=== PATIENT | female | born 1975 | race Caucasian/White ===

== ENCOUNTER 2016-07-15 06:41 | Observation (INO) | payer OTHER ==
--- NOTE | ~2016-07-15 | DS ---
Discharge Summary [facility] [address] [place]. [address] NAME: RONI PADGETT : 71 STATUS : DIS Walt PAT#: [id number] AGE: 41 ADM/REG DATE : 07/15/16 MR#: [id number] REPORT SERV DATE: 07/17/16 DICTATED BY: DARCIE CROCKETT DATE: 07/16/16 REPORT STATUS : Draft TRANSCRIBED BY: MODL DATE: 07/16/16 ADMISSION DATE: 07/15/2016 DISCHARGE DATE: 07/16/2016 DISCHARGE DIAGNOSES: 1. Acute hypoxic respiratory failure, improved. Does not require home oxygen. 2. Hypertension. Was not treated. The patient will be put on Norvasc 5 mg once a day. 3. Reactive airway disease, improved. 4. Tobacco abuse. 5. Obesity. HISTORY OF PRESENT ILLNESS: This is a 41-year-old female patient, came to the hospital with hypoxia and shortness of breath after she was exposed to some sort of chemicals. Please see dictated H and P. HOSPITAL COURSE: She was admitted to hospital with reactive airway disease and hypoxia. She was treated with a systemic steroid and bronchodilator, and also was found to be hypervolemic, so was treated with diuretics, improved within 24 hours significantly. She is not requiring any more oxygen. She was initially treated with a nonrebreather at the emergency room. She did have good urine output. Oxygen saturation is 98% on room air. Had a long discussion regarding the chemical use in hypertension treatment and also smoking cessation. She voiced understanding. She will be discharged with Norvasc 5 mg once a day, furosemide 40 mg, potassium 20 mEq for five days only, Flonase spray, and continue to use her albuterol and prednisone tapering dose. She requested Percocet for the pain control, so 10 pills of Percocet 10 will be given on discharge. DISPOSITION: The patient is discharged to home in stable condition. Need to follow up with primary care physician. EKL/MODL Darcie Crockett M.D. / [id number] CC: Darcie Crockett M.D.
--- NOTE | ~2016-07-15 | HP ---
History And Physical [facility] [id number] [place]. [address] NAME: RONI PADGETT : 71 STATUS : ADM Walt PAT#: [id number] AGE: 41 ADM/REG DATE : 07/15/16 MR#: [id number] REPORT SERV DATE: 07/15/16 DICTATED BY: MISTI CROCKETT DATE: 07/15/16 REPORT STATUS : Draft TRANSCRIBED BY: MODL DATE: 07/15/16 DATE OF ADMISSION: 07/15/2016 CHIEF COMPLAINT: Short of breath after using the bleach this morning. HISTORY OF PRESENT ILLNESS: This is a 41-year-old female patient who does not take any medications on a daily basis, although she has history of hypertension, who came to the hospital with difficulty breathing after using some sort of bleach. After the evaluation in the emergency room, she was found to be hypoxic and treated with high-dose steroid and put on the extra oxygen and then she was stabilized and advised on inpatient care. She denies any fever or chills, any other changes on her health status until this happening. Interestingly, the patient has a history of hypertension, was taking medication in the past, but did not take anything recently. She does not know what kind of bleach she mixed but she used bleaches for cleaning purpose. She also had some beers last night. REVIEW OF SYSTEMS: 14 systems reviewed and negative. The patient does not have any constipation or diarrhea. Not much headache. No visual changes. No smell changes. No nausea or vomiting. PAST MEDICAL HISTORY: 1. Hypertension. 2. Not medically diagnosed anxiety. PAST SURGICAL HISTORY: 1. Had a recent hysterectomy in May. 2. Carpal tunnel repair. 3. Tubal ligation. SOCIAL HISTORY: She is a current smoker, one pack a day since age 12. She drinks occasionally, more likely a few beers every weekends. She works in [employer] business, and she does have some [employer] contact. She lives with her . MEDICATION: None. ALLERGIES: TORADOL. FAMILY HISTORY: She has no premature coronary artery disease or lung disease. PHYSICAL EXAMINATION: VITAL SIGNS: Blood pressure is 134/79, pulse is 78, temperature is 97.4, respiratory rate 26, saturation is 99% on 35 high non-rebreather currently. GENERAL APPEARANCE: She is alert, awake, following commands, and no disorientation. History And Physical [address] [place]. [address] NAME: RONI PADGETT : 71 STATUS : ADM Walt PAT#: [id number] AGE: 41 ADM/REG DATE : 07/15/16 MR#: [id number] REPORT SERV DATE: 07/15/16 DICTATED BY: MISTI CROCKETT DATE: 07/15/16 REPORT STATUS : Draft TRANSCRIBED BY: MODL DATE: 07/15/16 HEENT: Pupils are equal, round, and reactive to light. EOM intact. NECK: Short neck. CHEST: Has severe crackles and coarse breathing up until mid chest in both sides and also has expiratory wheezing, scaled. CARDIOVASCULAR: No murmur, rub, or gallop. Has a regular rhythm and rate. ABDOMEN: Bowel sounds present and soft. No organomegaly appreciated. EXTREMITIES: Has some swelling and also has some erythema on both ankle area. LABORATORY DATA: Showed sodium 143, potassium 3.6, chloride 111, BUN is 18, creatinine 1.10. WBC 6.8, hemoglobin 12.8, hematocrit 38.3, platelets 269. Electrocardiogram showed a voltage criteria for LVH with sinus rhythm and prolonged QT. Chest x-ray showed, to my interpretation, vascular congestion. ASSESSMENT AND PLAN: 1. Hypoxic respiratory failure. Combination of reactive airway disease plus possible volume overload. 2. Hypertension. May need medical attention for the treatment. 3. Obesity. 4. Tobacco abuse. We are going to put on aggressive bronchodilator treatment and also IV diuretics and systemic steroid use, and we are going to obtain the echocardiogram and also we are going to reassess her blood pressure, treatment plan and also nicotine replacement therapy. I had a conversation about this current medical diagnosis and tobacco cessation. EKL/MODL Misti Crockett M.D. / [id number] CC: Misti Crockett M.D.
[2016-07-15 04:50] LABS: ALLENS TEST Pos; BE (BASE EXCESS) -4.7 MEQ/L (0 +/- 2.5); CARBOXYHEMOGLOBIN 1.9 % (0-3); DEVICE NRB; HEMOBLOGIN CONTENT 13.6 G/DL (12-16); INSTRUMENT SERIAL # 8087; METHEMOGLOBIN 0.2 % (0-3); OPERATOR ID 33449; PCO2 (CO2 TENSION) 47 MMHG (35-45); PO2 (O2 TENSION) 187 MMHG (79-93); SAMPLE Arterial; pH 7.29 (7.37-7.43)
[2016-07-15 05:12] LABS: BASOPHILS 0.1 %; BASOPHILS ABSOLUTE 0.01 10/3/uL (0.0-0.16); EOSINOPHILS 3.1 %; EOSINOPHILS ABSOLUTE 0.21 10/3/uL (0.0-0.53); HEMATOCRIT 38.3 % (36.0-48.0); HEMOGLOBIN 12.8 g/dL (12.0-16.0); IMMATURE GRANULOCYTES 0.1 %; IMMATURE GRANULOCYTES ABSOLUTE 0.01 10/3/uL (0.0-0.11); LYMPHOCYTES 32.7 %; LYMPHOCYTES ABSOLUTE 2.21 10/3/uL (0.67-4.30); MEAN CORPUS HGB CONC 33.4 g/dL (32.0-36.0); MEAN CORPUSCULAR HEMOGLOB 27.5 pg (26.0-34.0); MEAN CORPUSCULAR VOLUME 82.2 fL (80-100); MEAN PLATELET VOLUME 9.2 fL (9.2-13.0); MONOCYTES 6.7 %; MONOCYTES ABSOLUTE 0.45 10/3/uL (0.21-1.20); NEUTROPHILS 57.3 %; NEUTROPHILS ABSOLUTE 3.87 10/3/uL (2.02-8.40); PLATELET COUNT 269 10/3/uL (150-400); RBC DISTRIBUTION WIDTH 13.6 % (12.0-16.0); RED CELL COUNT 4.66 10/6/uL (4.0-5.6); WHITE BLOOD CELLS 6.8 10/3/uL (4.5-10.5)
[2016-07-15 05:18] LABS: MANUAL DIFF NO %
[2016-07-15 05:30] LABS: A/G RATIO 0.9 (0.7-1.9); ALBUMIN 3.7 G/DL (3.5-5.0); ALKALINE PHOSPHATASE 66 U/L (45-117); BUN (BLOOD UREA NITROGEN) 18 MG/DL (6-23); CALCIUM, SERUM 9.2 MG/DL (8.5-10.4); CHLORIDE, SERUM 111 MMOL/L (96-112); CO2 (CARBON DIOXIDE) 25 MMOL/L (24-34); GFR AFRICAN AMERICAN 71 ML/MIN (>=60); GFR NON AFRICAN AMERICAN 61 ML/MIN (>=60); GLOBULIN 4.1 G/DL (2.5-4.1); GLUCOSE, SERUM 124 MG/DL (60-99); POTASSIUM, SERUM 3.6 MMOL/L (3.5-5.3); SGOT(AST) 13 U/L (5-40); SGPT(ALT) 19 U/L (5-65); SODIUM, SERUM 143 MMOL/L (135-148); TOTAL BILIRUBIN 0.3 MG/DL (0-1.2); TOTAL PROTEIN 7.8 G/DL (6.0-8.5)
[2016-07-15 11:03] LABS: BENZODIAZEPINES (NOT ORD) NEG (NEG); COCAINE (NOT ORDERED) NEG (NEG); PHENCYCLIDINE(PCP) NEG (NEG)
[2016-07-15 11:04] LABS: AMPHETAMINES (NOT ORD) POS (NEG); BARBITURATES (NOT ORDERED NEG (NEG); CANNABINOIDS (THC) NEG (NEG); OPIATES NEG (NEG); TRICYCLICS NEG (NEG)
[2016-07-15 11:05] LABS: ACETAMINOPHEN LEVEL (TYLENOL) < 2.0 MCG/ML (10.0-20.0); SALICYLATE 2.3 MG/DL (-)
[2016-07-15 11:06] LABS: ALCOHOL < 10 MG/DL (0)
[2016-07-15] MEDS ORDERED: ESTRADIOL2 MG PO (15:29)
[2016-07-15] MEDS ORDERED: PERCOCET 10/3251 TAB PO (15:29)
[2016-07-15] MEDS ORDERED: ALBUTEROL0.083 % INH (15:30)
[2016-07-15] MEDS ORDERED: PROAIR HFA (15:30)
[2016-07-15] MEDS ORDERED: BEN25 PO (15:30)
[2016-07-15] MEDS ORDERED: GOODY'S EX-STR1 EAC1 PO (15:30)
[2016-07-15] MEDS ORDERED: COMBIVENT RESPIM4 GM INH (15:31)
[2016-07-15] MEDS ORDERED: ATIVAN PO (15:38)
[2016-07-16 03:48] LABS: BASOPHILS 0 %; EOSINOPHILS 0 %; HEMATOCRIT 34.9 % (36.0-48.0); HEMOGLOBIN 11.8 g/dL (12.0-16.0); IMMATURE GRANULOCYTES 0.3 %; IMMATURE GRANULOCYTES ABSOLUTE 0.03 10/3/uL (0.0-0.11); LYMPHOCYTES 7.5 %; LYMPHOCYTES ABSOLUTE 0.85 10/3/uL (0.67-4.30); MANUAL DIFF NO %; MEAN CORPUS HGB CONC 33.8 g/dL (32.0-36.0); MEAN CORPUSCULAR HEMOGLOB 27.6 pg (26.0-34.0); MEAN CORPUSCULAR VOLUME 81.5 fL (80-100); MEAN PLATELET VOLUME 9.2 fL (9.2-13.0); MONOCYTES 3.1 %; MONOCYTES ABSOLUTE 0.35 10/3/uL (0.21-1.20); NEUTROPHILS 89.1 %; NEUTROPHILS ABSOLUTE 10.14 10/3/uL (2.02-8.40); PLATELET COUNT 234 10/3/uL (150-400); RBC DISTRIBUTION WIDTH 13.4 % (12.0-16.0); RED CELL COUNT 4.28 10/6/uL (4.0-5.6); WHITE BLOOD CELLS 11.4 10/3/uL (4.5-10.5)
[2016-07-16 04:06] LABS: A/G RATIO 0.9 (0.7-1.9); ALBUMIN 3.1 G/DL (3.5-5.0); BUN (BLOOD UREA NITROGEN) 18 MG/DL (6-23); CALCIUM, SERUM 9.1 MG/DL (8.5-10.4); CHLORIDE, SERUM 105 MMOL/L (96-112); CO2 (CARBON DIOXIDE) 25 MMOL/L (24-34); GFR AFRICAN AMERICAN 105 ML/MIN (>=60); GFR NON AFRICAN AMERICAN 90 ML/MIN (>=60); GLOBULIN 3.6 G/DL (2.5-4.1); SGOT(AST) 9 U/L (5-40); SGPT(ALT) 17 U/L (5-65); SODIUM, SERUM 140 MMOL/L (135-148); TOTAL BILIRUBIN 0.2 MG/DL (0-1.2); TOTAL PROTEIN 6.7 G/DL (6.0-8.5)
[2016-07-16 04:07] LABS: ALKALINE PHOSPHATASE 54 U/L (45-117); GLUCOSE, SERUM 173 MG/DL (60-99)
[2016-07-16] MEDS ORDERED: NORV5 PO (08:58)
[2016-07-16] MEDS ORDERED: L40 PO (08:59)
[2016-07-16] MEDS ORDERED: KLOR-CON M2020 MEQ PO (09:00)
[2016-07-16] MEDS ORDERED: FLONASE NAS (09:01)
[2016-07-16] MEDS ORDERED: P10 PO (09:05)
== END 2016-07-16 13:53 | disposition home or self-care (01) ==
LOC: ER 06:41 → CDU1 07:41 → CDU2 08:21
PROVIDERS: Internal Medicine; Specialist
DX: J96.01 Acute respiratory failure with hypoxia (principal); I10 Essential (primary) hypertension; E66.9 Obesity, unspecified; J45.909 Unspecified asthma, uncomplicated; F17.210 Nicotine dependence, cigarettes, uncomplicated; Z98.51 Tubal ligation status; Z98.890 Other specified postprocedural states; Z90.710 Acquired absence of both cervix and uterus; Z88.8 Allergy status to other drugs, medicaments and biological substances; Z79.899 Other long term (current) drug therapy
CPT/HCPCS: 36600; 71010; 80053; 80305; 80307; 82140; 82805; 83605; 85025; 87040; 87070; 87205; 93005; 94640; 96372; 96374; 96375; 96376; 99291; A9270-GY; G0378; J2930

== ENCOUNTER 2016-08-16 02:50 | Emergency (ER) | payer OTHER ==
[~2016-08-16 02:50] MED LIST: ALBUTEROL0.083 % INH; ATIVAN PO; BEN25 PO; COMBIVENT RESPIM4 GM INH; ESTRADIOL2 MG PO; FLONASE NAS; GOODY'S EX-STR1 EAC1 PO; KLOR-CON M2020 MEQ PO; L40 PO; NORV5 PO; P10 PO; PERCOCET 10/3251 TAB PO; PROAIR HFA
[2016-08-16 03:16] LABS: BASOPHILS 0.2 %; BASOPHILS ABSOLUTE 0.01 10/3/uL (0.0-0.16); EOSINOPHILS 4.4 %; EOSINOPHILS ABSOLUTE 0.25 10/3/uL (0.0-0.53); HEMATOCRIT 37.5 % (36.0-48.0); HEMOGLOBIN 12.5 g/dL (12.0-16.0); IMMATURE GRANULOCYTES 0.2 %; IMMATURE GRANULOCYTES ABSOLUTE 0.01 10/3/uL (0.0-0.11); LYMPHOCYTES ABSOLUTE 2.48 10/3/uL (0.67-4.30); MEAN CORPUS HGB CONC 33.3 g/dL (32.0-36.0); MEAN CORPUSCULAR HEMOGLOB 27.4 pg (26.0-34.0); MEAN CORPUSCULAR VOLUME 82.1 fL (80-100); MEAN PLATELET VOLUME 9.3 fL (9.2-13.0); MONOCYTES 11.7 %; MONOCYTES ABSOLUTE 0.66 10/3/uL (0.21-1.20); NEUTROPHILS 39.5 %; NEUTROPHILS ABSOLUTE 2.23 10/3/uL (2.02-8.40); PLATELET COUNT 234 10/3/uL (150-400); RBC DISTRIBUTION WIDTH 13.9 % (12.0-16.0); RED CELL COUNT 4.57 10/6/uL (4.0-5.6)
[2016-08-16 03:18] LABS: MANUAL DIFF NO %; WHITE BLOOD CELLS 5.6 10/3/uL (4.5-10.5)
[2016-08-16 03:19] LABS: ER CBC TAT 0 Hrs 19 Mins
[2016-08-16 03:32] LABS: BUN (BLOOD UREA NITROGEN) 20 MG/DL (6-23); CALCIUM, SERUM 9.1 MG/DL (8.5-10.4); CHLORIDE, SERUM 111 MMOL/L (96-112); CO2 (CARBON DIOXIDE) 25 MMOL/L (24-34); CREATININE 0.97 MG/DL (0.55-1.02); GFR AFRICAN AMERICAN 83 ML/MIN (>=60); GFR NON AFRICAN AMERICAN 72 ML/MIN (>=60); POTASSIUM, SERUM 3.8 MMOL/L (3.5-5.3); SODIUM, SERUM 144 MMOL/L (135-148)
[2016-08-16 03:33] LABS: GLUCOSE, SERUM 116 MG/DL (60-99)
== END 2016-08-16 05:24 | disposition home or self-care (01) ==
LOC: ER 02:50
PROVIDERS: Nurse Practitioner
DX: L03.116 Cellulitis of left lower limb (principal); L03.115 Cellulitis of right lower limb; F17.200 Nicotine dependence, unspecified, uncomplicated; I10 Essential (primary) hypertension; Z88.6 Allergy status to analgesic agent; Z79.899 Other long term (current) drug therapy; Z79.82 Long term (current) use of aspirin
CPT/HCPCS: 80048; 85025; 99283